=== PATIENT | female | born 2000 | race African-American/Black ===

== ENCOUNTER 2023-05-30 08:50 | Inpatient (IN) | payer OTHER ==
[2023-05-30 09:12] VITALS: BMI 36.4
[2023-05-30] MEDS ORDERED: hydrALAZINE 20 MG/ML VIAL SLOW IVP PRN ×2 (09:39→09:58)
[2023-05-30 09:52] LABS: Fetal Membranes Rupture RUPTURE DETECTED (No Rupture)
[2023-05-30] MEDS ORDERED: Lidocaine 1% (PF) 30 ML VIAL SC PRN (09:58)
[2023-05-30] MEDS ORDERED: Promethazine HCl 25 MG/ML VIAL IM PRN (09:58)
[2023-05-30] MEDS ORDERED: Tranexamic Acid 1,000 MG/10 ML VIAL IVP PRN (09:58)
[2023-05-30] MEDS ORDERED: Diphenoxylate HCl/Atropine Tablet PO PRN (09:58)
[2023-05-30] MEDS ORDERED: Methylergonovine 0.2 MG/ML VIAL IM PRN (09:58)
[2023-05-30] MEDS ORDERED: Docusate 100 MG CAP PO PRN (09:58)
[2023-05-30] MEDS ORDERED: Ondansetron PF 4 MG/2 ML Vial IVP PRN (09:58)
[2023-05-30] MEDS ORDERED: Carboprost 250 MCG/ML AMP IM PRN (09:58)
[2023-05-30] MEDS ORDERED: Ibuprofen 800 MG TAB PO PRN (09:58)
[2023-05-30] MEDS ORDERED: HYDROcodone/Acetaminophen 5/325 mg Tablet PO PRN (09:58)
[2023-05-30] MEDS ORDERED: Misoprostol 200 MCG TAB PR PRN (09:58)
[2023-05-30] MEDS ORDERED: Oxytocin 30 units/NS 500 ML 500 ML IV SCH ×2 (10:00)
[2023-05-30] MEDS ORDERED: levETIRAcetam 500 MG TAB PO SCH ×3 (10:38→21:00)
[2023-05-30] MEDS ORDERED: Lorazepam 2 MG/ML VIAL IM PRN ×2 (11:00→13:09)
[2023-05-30] MEDS ORDERED: Lorazepam 2 MG/ML VIAL IM SCH (11:00)
[2023-05-30] MEDS: Misoprostol 100 MCG TAB PO SCH (12:27)
[2023-05-30 12:45] LABS: Hematocrit 28.1 % (34.9-44.5); Hemoglobin 9.1 g/dL (12.0-15.5); Mean Corpuscular HGB CONC 32.4 g/dL (32.0-36.0); Mean Corpuscular Hemoglobin 22.6 pg (27.0-33.0); Mean Corpuscular Volume 69.7 fl (81.6-98.3); Mean Platelet Volume 9.8 fl (7.4-10.4); Platelet Count 402 10x3/uL (150-450); Red Blood Cell (RBC) Count 4.03 10x6/uL (3.90-5.03); White Blood Cell (WBC) Count 9.9 10x3/uL (3.5-10.5)
[2023-05-30 13:05] LABS: HBSAg Index 0.08 S/CO (0-0.99); Hep B Surf Ag - L&D Non-Reactive S/CO (NonReactive); Syphilis Antibody Nonreactive (Nonreactive); Syphilis Antibody Index 0.06 S/CO (<1.00 Non-Reactive)
[2023-05-30] MEDS ORDERED: Bupivacaine 0.25% HCL 30 ML VIAL ONE (14:26)
[2023-05-30] MEDS ORDERED: Oxytocin 30 units/NS 500 ML 500 ML ONE (17:03)
[2023-05-30] MEDS ORDERED: fentaNYL/Ropivacaine Epidural 100 ML ONE (20:40)
[2023-05-30] MEDS ORDERED: Propranolol HCl 20 MG TAB PO SCH (21:00)
[2023-05-31] MEDS ORDERED: Azithromycin 500 MG VIAL ONE (02:19)
[2023-05-31] MEDS ORDERED: CEFAZOLIN 2 GM VIAL ONE (02:19)
[2023-05-31] MEDS ORDERED: Bicitra 30 ML UDCUP PO PRN (02:21)
[2023-05-31] MEDS ORDERED: Famotidine/PF 20 mg/2ml Vial SLOW IVP PRN (02:21)
[2023-05-31] MEDS ORDERED: Lidocaine 2% MPF 10 ML AMP (For Epidural Use) ONE ×2 (02:28→02:31)
[2023-05-31] MEDS ORDERED: Ondansetron PF 4 MG/2 ML Vial ONE (02:28)
[2023-05-31] MEDS ORDERED: ePHEDrine Sulfate 50 MG/10 ML VIAL ONE (02:28)
[2023-05-31] MEDS ORDERED: Ketorolac Tromethamine 30 MG/ML VIAL ONE (02:28)
[2023-05-31] MEDS ORDERED: PHENYLEPHRINE-NS 100 MCG/ML 10 ML SYRINGE ONE (02:28)
[2023-05-31] MEDS ORDERED: Morphine PF 10 MG/10 ML VIAL ONE (02:28)
[2023-05-31] MEDS ORDERED: Oxytocin 10 UNITS/ML VIAL ONE (02:28)
[2023-05-31] MEDS ORDERED: CEFAZOLIN 2 GM in Sodium Chloride 0.9% 100 ML IVPB SCH (02:30)
[2023-05-31] MEDS ORDERED: Azithromycin 500 MG in Sodium Chloride 0.9% 250 ML 250 ML IVPB SCH (02:30)
[2023-05-31] MEDS ORDERED: Midazolam HCl 2 mg/2 ml Vial ONE (02:34)
[2023-05-31 03:43] LABS: pH (Cord, venous) 7.274 (7.250-7.350)
[2023-05-31] MEDS ORDERED: Ondansetron PF 4 MG/2 ML Vial IVP PRN ×4 (04:07→04:08)
[2023-05-31] MEDS ORDERED: Acetaminophen 325 MG TAB PO PRN ×2 (04:07→04:08)
[2023-05-31] MEDS ORDERED: hydrALAZINE 20 MG/ML VIAL SLOW IVP PRN (04:07)
[2023-05-31] MEDS ORDERED: Boostrix 0.5 ML (Tdap) VIAL (>/=7 yrs of age) IM ONE (04:07)
[2023-05-31] MEDS ORDERED: Simethicone Chewable 80 MG TAB PO PRN (04:07)
[2023-05-31] MEDS ORDERED: diphenhydrAMINE 50 MG/ML VIAL IVP PRN ×2 (04:08)
[2023-05-31] MEDS ORDERED: Moisturizing Cream (Eucerin) 113 GM JAR TOP PRN ×2 (04:08)
[2023-05-31] MEDS ORDERED: Naloxone HCl 0.4 mg/ml Vial IV PRN (04:08)
[2023-05-31] MEDS ORDERED: Naloxone HCl 0.4 mg/ml Vial IVP PRN ×4 (04:08)
[2023-05-31] MEDS ORDERED: Morphine 4 MG/ML VIAL SLOW IVP PRN (04:08)
[2023-05-31] MEDS ORDERED: Promethazine HCl 25 MG/ML VIAL IM PRN ×2 (04:08)
[2023-05-31] MEDS ORDERED: fentaNYL 50 mcg/mL 1 mL Vial SLOW IVP PRN (04:08)
[2023-05-31] MEDS ORDERED: Lactated Ringer's 500 ML IV PRN (04:08)
[2023-05-31] MEDS ORDERED: Meperidine HCl/PF 25 MG/ML VIAL SLOW IVP PRN (04:08)
[2023-05-31] MEDS ORDERED: Promethazine HCl 25 MG SUPP PR PRN (04:08)
[2023-05-31] MEDS ORDERED: ePHEDrine Sulfate 50 MG/10 ML VIAL SLOW IVP PRN (04:08)
[2023-05-31] MEDS ORDERED: Communication Order-Pharmacy FS SCH ×2 (04:15)
[2023-05-31] MEDS ORDERED: Ketorolac Tromethamine 30 MG/ML VIAL IVP SCH (04:15)
[2023-05-31] MEDS ORDERED: fentaNYL 2 mcg/Ropivacaine 0.2% Epidural 100 ML CADD EPIDURAL SCH (04:15)
[2023-05-31] MEDS: Misoprostol 100 MCG TAB PO SCH ×2 (06:08→06:09)
[2023-05-31] MEDS: Prenatal Vitamin 1 TAB PO SCH (09:58)
[2023-05-31] MEDS: levETIRAcetam 500 MG TAB PO SCH ×2 (10:05→21:33)
[2023-05-31] MEDS: Propranolol HCl LA 60 MG CAP PO SCH ×2 (10:05→21:34)
[2023-05-31] MEDS: Ferrous Sulfate 325 MG TAB PO SCH ×2 (10:05→21:33)
[2023-05-31] MEDS: Ketorolac Tromethamine 30 MG/ML VIAL IVP PRN ×2 (11:57→18:22)
[2023-06-01] MEDS: Ketorolac Tromethamine 30 MG/ML VIAL IVP PRN (01:31)
[2023-06-01 04:49] LABS: Hematocrit 23.3 % (34.9-44.5); Hemoglobin 7.4 g/dL (12.0-15.5); Mean Corpuscular HGB CONC 31.8 g/dL (32.0-36.0); Mean Corpuscular Hemoglobin 22.4 pg (27.0-33.0); Mean Corpuscular Volume 70.6 fl (81.6-98.3); Platelet Count 368 10x3/uL (150-450); RBC Distribution Width 16.9 % (11.5-14.5); White Blood Cell (WBC) Count 17.4 10x3/uL (3.5-10.5)
[2023-06-01] MEDS: Ibuprofen 800 MG TAB PO SCH ×3 (06:12→21:21)
[2023-06-01] MEDS: levETIRAcetam 500 MG TAB PO SCH ×2 (08:11→21:21)
[2023-06-01] MEDS: Prenatal Vitamin 1 TAB PO SCH (08:11)
[2023-06-01] MEDS: Propranolol HCl LA 60 MG CAP PO SCH ×2 (08:11→21:21)
[2023-06-01] MEDS: Ferrous Sulfate 325 MG TAB PO SCH ×2 (08:11→21:21)
[2023-06-01] MEDS: HYDROcodone/Acetaminophen 5/325 mg Tablet PO PRN ×2 (14:07→20:38)
[2023-06-02 04:13] LABS: Hematocrit 24.3 % (34.9-44.5); Hemoglobin 7.7 g/dL (12.0-15.5); Mean Corpuscular HGB CONC 31.7 g/dL (32.0-36.0); Mean Corpuscular Hemoglobin 22.8 pg (27.0-33.0); Mean Corpuscular Volume 71.9 fl (81.6-98.3); Mean Platelet Volume 9.4 fl (7.4-10.4); Platelet Count 391 10x3/uL (150-450); RBC Distribution Width 17.2 % (11.5-14.5); Red Blood Cell (RBC) Count 3.38 10x6/uL (3.90-5.03); White Blood Cell (WBC) Count 19.9 10x3/uL (3.5-10.5)
[2023-06-02] MEDS: Ibuprofen 800 MG TAB PO SCH ×2 (04:56→14:19)
[2023-06-02] MEDS: HYDROcodone/Acetaminophen 5/325 mg Tablet PO PRN ×2 (04:56→11:34)
[2023-06-02 07:31] VITALS: BP 105/67; TEMP 97.7
[2023-06-02] MEDS: Prenatal Vitamin 1 TAB PO SCH (07:55)
[2023-06-02] MEDS: Ferrous Sulfate 325 MG TAB PO SCH (07:55)
[2023-06-02] MEDS: Propranolol HCl LA 60 MG CAP PO SCH (07:55)
[2023-06-02] MEDS: levETIRAcetam 500 MG TAB PO SCH (07:55)
== END 2023-06-02 17:25 | disposition home or self-care (01) | DRG 787 ==
LOC: CSHLD/OP 08:50 → CSHLD 10:17 → CSHPP 05-31 06:20
PROVIDERS: ADMIT Obstetrics & Gynecology; ATTEND Obstetrics & Gynecology
PROC: 10D00Z1 Extraction of Products of Conception, Low, Open Approach (ICD-10-PCS; principal; 2023-05-31)
PROC: 10H07YZ Insertion of Other Device into Products of Conception, Via Natural or Artificial Opening (ICD-10-PCS; 2023-05-31)
PROC: 3E0P7VZ Introduction of Hormone into Female Reproductive, Via Natural or Artificial Opening (ICD-10-PCS; 2023-05-31)
PROC: 3E033XZ Introduction of Vasopressor into Peripheral Vein, Percutaneous Approach (ICD-10-PCS; 2023-05-31)
PROC: 4A133R1 Monitoring of Arterial Saturation, Peripheral, Percutaneous Approach (ICD-10-PCS; 2023-05-31)
DX: O42.02 Full-term premature rupture of membranes, onset of labor within 24 hours of rupture (principal); D62 Acute posthemorrhagic anemia; O98.32 Other infections with a predominantly sexual mode of transmission complicating childbirth; O99.354 Diseases of the nervous system complicating childbirth; O76 Abnormality in fetal heart rate and rhythm complicating labor and delivery; G90.A Postural orthostatic tachycardia syndrome [POTS]; A56.8 Sexually transmitted chlamydial infection of other sites; O61.0 Failed medical induction of labor; G40.909 Epilepsy, unspecified, not intractable, without status epilepticus; Z3A.37 37 weeks gestation of pregnancy; Z37.0 Single live birth; Z88.8 Allergy status to other drugs, medicaments and biological substances; Z79.899 Other long term (current) drug therapy; O32.4XX0 Maternal care for high head at term, not applicable or unspecified; O90.81 Anemia of the puerperium
CPT/HCPCS: 36415; 51702; 82805; 84112; 85027; 86780; 86850; 86900; 86901; 87340; 99285; J1885; J2060; J2250; J2274; J2405; J2590; S0020

== ENCOUNTER 2024-08-29 15:34 | Emergency (ER) | payer OTHER ==
[2024-08-29] MEDS ORDERED: Ondansetron ODT 4 MG TAB ONE (16:37)
[2024-08-29] MEDS ORDERED: Ibuprofen 200 MG TAB ONE (16:37)
[2024-08-29] MEDS ORDERED: Acetaminophen 325 MG TAB ONE (16:37)
== END 2024-08-29 16:57 | disposition home or self-care (01) ==
LOC: CSHERS 15:34
DX: J11.1 Influenza due to unidentified influenza virus with other respiratory manifestations (principal); Z55.0 Illiteracy and low-level literacy
CPT/HCPCS: 71045; Q0162

== ENCOUNTER 2024-09-02 10:29 | Emergency (ER) | payer OTHER ==
[2024-09-02] MEDS ORDERED: Promethazine HCl 12.5 MG, Admixture Fee 1 EACH in Sodium Chloride 0.9% 50 ML IVPB SCH (12:30)
[2024-09-02] MEDS ORDERED: Ketorolac Tromethamine 30 MG (1 mL) VIAL ONE (12:31)
[2024-09-02 12:58] LABS: Bilirubin Neg (Negative); Blood, Urine 150 (Negative); Clarity Cloudy (Clear); Glucose, Urine (Dipstick) Normal (Negative); Ketone, Urine Negative (Negative); Leukocyte 500 (Negative); Nitrite Negative (Negative); Protein, Urine (Dipstick) 100 mg/dl (Neg-Trace)
[2024-09-02 12:59] LABS: #Basophils Less than 0.03 10x3/uL (0.0-0.2); #Eosinophils Less than 0.03 10x3/uL (0.0-0.5); #Monocytes 1.79 10x3/uL (0.0-1.1); #Neutrophils 10.07 10x3/uL (1.5-8.4); %Basophils 0.1 % (0.0-2.0); %Eosinophils 0.1 % (0.0-6.0); %Lymphocytes 13.3 % (18.0-47.0); %Monocytes 12.9 % (0.0-10.0); %Neutrophils 72.7 % (40.0-75.0); Hematocrit 26.1 % (34.9-44.5); Hemoglobin 8.3 g/dL (12.0-15.5); Mean Corpuscular HGB CONC 31.8 g/dL (32.0-36.0); Mean Corpuscular Volume 62.7 fL (81.6-98.3); Mean Platelet Volume 9.4 fL (7.4-10.4); Platelet Count 507 10x3/uL (150-450); RBC Distribution Width 20.3 % (11.5-14.5); Red Blood Cell (RBC) Count 4.16 10x6/uL (3.90-5.03); White Blood Cell (WBC) Count 13.86 10x3/uL (3.5-10.5)
[2024-09-02 13:06] LABS: ALT (SGPT) 55 U/L (8-55); AST (SGOT) 60 U/L (5-34); Albumin 3.1 g/dL (3.5-5.0); Alkaline Phosphatase 118 U/L (40-110); Anion Gap 15 mmol/L (10-20); BUN (Urea Nitrogen) 9 mg/dL (7.0-18.7); Bilirubin, Total 0.7 mg/dL (0.2-1.2); Calc. Creatinine Clearance 0 mL/min (70-130); Calcium 8.8 mg/dL (7.8-10.44); Carbon Dioxide 24 mmol/L (22-29); Chloride 101 mmol/L (98-107); Estimated GFR 80; Globulin 4.4 g/dL (2.4-3.5); Glucose 96 mg/dL (70-105); Lipase 8 U/L (8-78); Magnesium 2.1 mg/dL (1.6-2.6); Potassium 2.8 mmol/L (3.5-5.1); Protein, Total 7.5 g/dL (6.0-8.3); Sodium 137 mmol/L (136-145)
[2024-09-02 13:07] LABS: BHCG - Serum Negative (NEGATIVE); Pregs Control Bar Appear? YES (CONTROL BAR)
[2024-09-02 13:08] LABS: Pregs Control Background? CLEAR/WHITE (CLR/WHITE)
[2024-09-02 13:12] LABS: Troponin I Less than 0.010 ng/mL (< 0.028)
[2024-09-02 13:13] LABS: Bacteria/HPF 4+ HPF (None Seen); CAUTI Indications for Culture Pelvic or flank pain; WBC/HPF Greater than 50 HPF (0-3)
[2024-09-02 13:14] LABS: Urine Culture Reflex Yes Yes
[2024-09-02] MEDS ORDERED: Potassium Chloride 20 MEQ TAB ONE ×2 (13:21→13:29)
[2024-09-02] MEDS ORDERED: cefTRIAXone (ROCEPHIN) 2 GM VIAL ONE (13:21)
[2024-09-02] MEDS ORDERED: Iopamidol 300 61% 100 ML VIAL FS ONE (13:29)
[2024-09-02 14:20] LABS: Microcytosis SLIGHT = 6-15 cells (100X) (0-5/hpf); Ovalocytes SLIGHT = 2-5 cells (100X) (0-1/hpf); Platelet Adequacy Comment Appears Adequate
[2024-09-03 00:16] LABS: Reflex for Review?? YES
== END 2024-09-02 15:54 | disposition home or self-care (01) ==
LOC: CSHERS 10:29
DX: N10 Acute pyelonephritis (principal); D64.9 Anemia, unspecified; E87.6 Hypokalemia; G40.909 Epilepsy, unspecified, not intractable, without status epilepticus
CPT/HCPCS: 36415; 71045; 74177; 80053; 81001; 83605; 83690; 83735; 83880; 84484; 84703; 85025; 85060; 87040; 87077; 87086; 87149; 87186; 93005; 96374; 96375; J0696; J1885; J2550; Q9967

== ENCOUNTER 2025-05-04 08:38 | Observation (INO) | payer OTHER ==
[2025-05-04] MEDS ORDERED: levETIRAcetam 500 MG (5 mL) VIAL ONE (10:43)
[2025-05-04 11:19] LABS: ALT (SGPT) Less than 7 U/L (Less than 34); AST (SGOT) 13 U/L (11-34); Albumin 3.0 g/dL (3.1-4.5); Alkaline Phosphatase 116 U/L (40-110); Anion Gap 11 mmol/L (10-20); BUN (Urea Nitrogen) Less than 4 mg/dL (7.0-18.7); Bilirubin, Total 0.3 mg/dL (0.3-1.2); Calc. Creatinine Clearance 0 mL/min (70-130); Calcium 8.9 mg/dL (7.8-10.44); Carbon Dioxide 21 mmol/L (22-29); Chloride 105 mmol/L (98-107); Globulin 4.7 g/dL (2.4-3.5); Glucose 82 mg/dL (70-105); Magnesium 2.1 mg/dL (1.6-2.6); Potassium 3.5 mmol/L (3.5-5.1); Sodium 133 mmol/L (136-145)
[2025-05-04 11:22] LABS: #Basophils Less than 0.03 10x3/uL (0.0-0.2); #Eosinophils 0.10 10x3/uL (0.0-0.5); #Monocytes 1.08 10x3/uL (0.0-1.1); #Neutrophils 9.48 10x3/uL (1.5-8.4); %Basophils 0.2 % (0.0-2.0); %Eosinophils 0.8 % (0.0-6.0); %Lymphocytes 9.0 % (18.0-47.0); %Monocytes 8.8 % (0.0-10.0); %Neutrophils 77.1 % (40.0-75.0); Hematocrit 22.7 % (34.9-44.5); Hemoglobin 6.9 g/dL (12.0-15.5); Mean Corpuscular Hemoglobin 18.9 pg (27.0-33.0); Mean Corpuscular Volume 62.0 fL (81.6-98.3); Platelet Count 368 10x3/uL (150-450); Red Blood Cell (RBC) Count 3.66 10x6/uL (3.90-5.03); White Blood Cell (WBC) Count 12.28 10x3/uL (3.5-10.5)
[2025-05-04 12:07] LABS: Glucose, Urine (Dipstick) Normal (Negative); Leukocyte Negative (Negative); Protein, Urine (Dipstick) 15 mg/dl (Neg-Trace); Specific Gravity, Urine 1.005 (1.005-1.030)
[2025-05-04 12:44] LABS: Bacteria/HPF None Seen HPF (None Seen); CAUTI Indications for Culture Pelvic or flank pain
[2025-05-04 12:45] LABS: RBC/HPF 0-3 HPF (0-3); WBC/HPF 0-3 HPF (0-3)
[2025-05-04 12:46] LABS: Urine Culture Reflex No No
[2025-05-04] MEDS ORDERED: hydrALAZINE 20 MG/ML VIAL SLOW IVP PRN (14:20)
[2025-05-04] MEDS ORDERED: diphenhydrAMINE 25 MG CAP PO SCH (15:00)
[2025-05-04] MEDS ORDERED: Acetaminophen 325 MG TAB PO SCH (15:00)
[2025-05-04] MEDS ORDERED: GUAIFENESIN SF SOLN 200 MG/10 ML UDCUP PO PRN (16:57)
[2025-05-04] MEDS ORDERED: Benzocaine/Menthol 1 LOZ LOZ PO PRN (16:57)
[2025-05-04] MEDS: Sodium Chloride 0.65% Nasal 44 ML BOT EA NARE PRN (17:22)
[2025-05-04] MEDS: GUAIFENESIN SF SOLN 200 MG/10 ML UDCUP PO SCH (17:23)
[2025-05-04] MEDS ORDERED: levETIRAcetam 500 MG TAB PO SCH ×2 (21:00)
[2025-05-04 21:30] LABS: Hematocrit 25.3 % (34.9-44.5); Hemoglobin 7.9 g/dL (12.0-15.5)
== END 2025-05-05 00:15 | disposition short-term general hospital (02) ==
LOC: CSHERS 08:38 → CSHLD/OP 13:51 → CSHLD 21:16 → INTOOBSV 21:16
PROVIDERS: ADMIT Obstetrics & Gynecology; ATTEND Obstetrics & Gynecology
DX: O99.013 Anemia complicating pregnancy, third trimester (principal); D64.9 Anemia, unspecified; O99.513 Diseases of the respiratory system complicating pregnancy, third trimester; J06.9 Acute upper respiratory infection, unspecified; O99.353 Diseases of the nervous system complicating pregnancy, third trimester; G40.909 Epilepsy, unspecified, not intractable, without status epilepticus; G90.1 Familial dysautonomia [Riley-Day]; Z3A.31 31 weeks gestation of pregnancy; Z88.8 Allergy status to other drugs, medicaments and biological substances
CPT/HCPCS: 36415; 36430; 71045; 76819; 80053; 81001; 83605; 83735; 84145; 85025; 86850; 86900; 86901; 87081; 87400; 87426; 87430; 93005; 96360; 96361; 96374; 99285; J1953; P9040